=== PATIENT | male | born 2000 | race Two or more races ===

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

== ENCOUNTER 2021-11-26 10:55 | Outpatient (CLI) | payer BC ==
[2021-11-26 12:37] LABS: BASOPHILS % (AUTO) 0.8 % (0.0-2.0); EOSINOPHILS % (AUTO) 1.7 % (0.0-6.0); HEMATOCRIT 49 % (39-51); HEMOGLOBIN 15.1 g/dL (13.5-17.5); LYMPHOCYTES # (AUTO) 1.3 K/uL (0.8-4.8); LYMPHOCYTES % (AUTO) 27.1 % (20.0-44.0); MEAN CORPUSCULAR HGB CONC 31 g/dl (31.0-36.0); MEAN CORPUSCULAR VOLUME 74 fL (80-96); MONOCYTES # (AUTO) 0.2 K/uL (0.1-1.30); MONOCYTES % (AUTO) 5.3 % (2.0-12.0); NEUTROPHILS % (AUTO) 65.1 % (43.0-81.0); PLATELET COUNT (AUTO) 239 K/uL (150-450); RED BLOOD CELL COUNT(AUTO) 6.54 MIL/uL (4.5-6.0); WHITE BLOOD COUNT (AUTO) 4.6 K/uL (4.3-11.0)
[2021-11-26 13:57] LABS: BILIRUBIN,URINE NEGATIVE (NEGATIVE); COLOR,URINE YELLOW (YELLOW); LEUKOCYTE ESTERASE ,URINE NEGATIVE (NEGATIVE); NITRITE, URINE NEGATIVE (NEGATIVE); PH,URINE 7.5 (5.0-8.0); PROTEIN,URINE NEGATIVE (NEGATIVE); UGLUCOSE NEGATIVE (NEGATIVE); UROBILINOGEN,URINE 0.2 EU/dL (0.2)
[2021-11-26 14:15] LABS: BACTERIA,URINE None seen /HPF (None Seen); SQUAMOUS EPITHELIAL CELL,UR None Seen /HPF (None Seen); WBC,URINE 0-2 /HPF (0-3)
[2021-11-26 14:39] LABS: BILIRUBIN,TOTAL 0.3 mg/dL (0.2-1.0); CALCIUM, SERUM 9.1 mg/dL (8.5-10.1); CREATININE 1.1 mg/dL (0.6-1.3); POTASSIUM 4.8 mmol/L (3.5-5.1); TOTAL PROTEIN, SERUM 7.6 g/dL (6.4-8.2)
[2021-11-26 19:44] LABS: URIC ACID 7.2 mg/dL (2.6-7.2)
[2021-11-26 20:03] LABS: FREE T4 (FREE THYROXINE) 1.07 ng/dL (0.76-1.46)
== END 2021-11-26 23:59 | disposition home or self-care (01) ==
LOC: LAB 10:55
PROVIDERS: ATTEND Legal Medicine
DX: D64.9 Anemia, unspecified (principal); E78.5 Hyperlipidemia, unspecified; E55.9 Vitamin D deficiency, unspecified; N18.9 Chronic kidney disease, unspecified; M79.89 Other specified soft tissue disorders; Z00.00 Encounter for general adult medical examination without abnormal findings
CPT/HCPCS: 36415; 73140-TC; 80053-TC; 80061-TC; 81001; 82306; 82607-TC; 82626; 83540-TC; 84402; 84403; 84439-TC; 84550-TC; 85025-TC

== ENCOUNTER 2022-06-02 08:50 | Outpatient (CLI) | payer BC ==
[2022-06-03 04:06] LABS: *MUMPS AB (IGG) 20.5 AU/mL (Immune >10.9)
[2022-06-03 11:07] LABS: *RUBEOLA AB (IGG) 15.5 AU/mL (Immune >16.4); RUBELLA ANTIBODIES, IGG 0.93 index (Immune >0.99)
== END 2022-06-02 23:59 | disposition home or self-care (01) ==
LOC: LAB 08:50
PROVIDERS: ATTEND Legal Medicine
DX: Z23 Encounter for immunization (principal)
CPT/HCPCS: 36415; 86480; 86706; 86735; 86762; 86765; 86787

== ENCOUNTER 2022-08-25 11:24 | Outpatient (CLI) | payer BC ==
[2022-08-26 05:07] LABS: *RUBEOLA AB (IGG) >300.0 AU/mL (Immune >16.4)
== END 2022-08-25 23:59 | disposition home or self-care (01) ==
LOC: LAB 11:24
PROVIDERS: ATTEND Legal Medicine
DX: Z23 Encounter for immunization (principal)
CPT/HCPCS: 36415; 86735; 86762; 86765; 86787

== ENCOUNTER 2023-03-24 10:16 | Outpatient (CLI) | payer BC | END 2023-03-24 23:59 | disposition home or self-care (01) | LOC: LAB 10:16 | PROVIDERS: ATTEND Legal Medicine | DX: Z23 Encounter for immunization (principal) | CPT/HCPCS: 36415; 86480 ==

== ENCOUNTER 2024-08-06 13:34 | Emergency (ER) | payer BC ==
[~2024-08-06] VITALS: Ht 188 cm; Wt 90.7 kg
[2024-08-06 13:43] VITALS: BP 141/81; TEMP 100.3
[2024-08-06] MEDS ORDERED: AMOX500C2 PO (13:52)
[2024-08-06 14:11] VITALS: O2SAT 100
== END 2024-08-06 14:13 | disposition home or self-care (01) ==
LOC: ER 13:34
DX: J02.0 Streptococcal pharyngitis (principal); J45.909 Unspecified asthma, uncomplicated
CPT/HCPCS: 86403-TC; 87070-TC

== ENCOUNTER 2024-09-09 10:56 | Outpatient (CLI) | payer BC ==
[~2024-09-09 10:56] MED LIST: AMOX500C2 PO
[2024-09-09 11:22] LABS: APPEARANCE,URINE CLEAR (CLEAR); BILIRUBIN,URINE NEGATIVE (NEGATIVE); BLOOD, URINE TRACE-INTA Ery/uL (NEGATIVE); COLOR,URINE YELLOW (YELLOW); KETONES,URINE NEGATIVE (NEGATIVE); LEUKOCYTE ESTERASE ,URINE NEGATIVE (NEGATIVE); NITRITE, URINE NEGATIVE (NEGATIVE); PROTEIN,URINE NEGATIVE (NEGATIVE); UGLUCOSE NEGATIVE (NEGATIVE); UROBILINOGEN,URINE 0.2 EU/dL (0.2)
[2024-09-09 11:33] LABS: BASOPHILS % (AUTO) 0.8 % (0.0-2.0); EOSINOPHILS # (AUTO) 0.1 K/uL (0.0-0.7); EOSINOPHILS % (AUTO) 1.3 % (0.0-6.0); HEMATOCRIT 46 % (39-51); HEMOGLOBIN 14.5 g/dL (13.5-17.5); LYMPHOCYTES # (AUTO) 1.7 K/uL (0.8-4.8); LYMPHOCYTES % (AUTO) 32.2 % (20.0-44.0); MEAN CORPUSCULAR HEMOGLOBIN 24 PG (26.0-33.0); MEAN CORPUSCULAR HGB CONC 32 g/dl (31.0-36.0); MEAN CORPUSCULAR VOLUME 74 fL (80-96); MONOCYTES # (AUTO) 0.3 K/uL (0.1-1.30); MONOCYTES % (AUTO) 4.8 % (2.0-12.0); NEUTROPHILS # (AUTO) 3.2 K/uL (1.8-8.9); NEUTROPHILS % (AUTO) 60.9 % (43.0-81.0); PLATELET COUNT (AUTO) 255 K/uL (150-450); RED BLOOD CELL COUNT(AUTO) 6.17 MIL/uL (4.5-6.0); RED CELL DISTRIBUTION WIDTH 15.1 % (11.5-15.0); WHITE BLOOD COUNT (AUTO) 5.3 K/uL (4.3-11.0)
[2024-09-09 11:37] LABS: ADD URINE CULTURE NO; BACTERIA,URINE Rare /HPF (None Seen); RBC,URINE 0-2 /HPF (0-2); SQUAMOUS EPITHELIAL CELL,UR None Seen /HPF (None Seen); WBC,URINE 0-2 /HPF (0-3)
[2024-09-09 12:50] LABS: ALBUMIN 4.1 g/dL (3.4-5.0); BILIRUBIN,TOTAL 0.6 mg/dL (0.2-1.0); POTASSIUM 4.2 mmol/L (3.5-5.1); TOTAL PROTEIN, SERUM 7.8 g/dL (6.4-8.2)
[2024-09-09 22:09] LABS: URIC ACID 7.4 mg/dL (2.6-7.2)
[2024-09-09 22:18] LABS: THYROID STIMULATING HORMONE 1.433 uIU/mL (0.358-3.74)
[2024-09-12 23:07] LABS: FOLIC ACID 9.9 ng/mL (>3.0); VIT D, 25-HYDROXY 25.8 ng/mL (30.0-100.0)
== END 2024-09-09 23:59 | disposition home or self-care (01) ==
LOC: LAB 10:56
PROVIDERS: ATTEND Legal Medicine
DX: R53.1 Weakness (principal); I10 Essential (primary) hypertension; E55.9 Vitamin D deficiency, unspecified; D64.9 Anemia, unspecified; E03.9 Hypothyroidism, unspecified; E78.00 Pure hypercholesterolemia, unspecified
CPT/HCPCS: 36415; 80053-TC; 80061-TC; 81001; 82306; 82607-TC; 82728-TC; 83540-TC; 84403; 84443-TC; 84550-TC; 85025-TC